=== PATIENT | female | born 1995 | race Caucasian/White ===

== ENCOUNTER 2023-04-20 08:17 | Day surgery (SDC) | payer SELFPAY ==
[2023-04-20] MEDS ORDERED: hydrALAZINE 20 MG/ML VIAL SLOW IVP PRN (09:52)
[2023-04-20 11:08] VITALS: BMI 39.6
[2023-04-20 11:28] LABS: Bilirubin Neg (Negative); Blood, Urine Negative (Negative); Clarity Clear (Clear); Glucose, Urine (Dipstick) Normal (Negative); Ketone, Urine Negative (Negative); Leukocyte Negative (Negative); Nitrite Negative (Negative); Protein, Urine (Dipstick) Negative (Neg-Trace); Urobilinogen Normal mg/dL (Less than 2)
[2023-04-20 11:40] LABS: Bacteria/HPF 1+ HPF (None Seen); RBC/HPF 0-3 HPF (0-3); Squamous Epithelial 0-3 HPF (0-3); WBC/HPF 0-3 HPF (0-3)
[2023-04-20] MEDS ORDERED: Acetaminophen 500 MG TAB PO SCH (12:00)
[2023-04-21] MEDS ORDERED: Lidocaine 4% Patch TD SCH (09:00)
[2023-04-21] MEDS ORDERED: Transdermal Patch Removal TOP SCH (21:00)
== END 2023-04-20 12:23 | disposition home or self-care (01) ==
LOC: CSHLD/OP 08:17
PROVIDERS: ATTEND Family Medicine
DX: O99.891 Other specified diseases and conditions complicating pregnancy (principal); R10.9 Unspecified abdominal pain; M25.552 Pain in left hip; O99.213 Obesity complicating pregnancy, third trimester; E66.9 Obesity, unspecified; O99.013 Anemia complicating pregnancy, third trimester; D64.9 Anemia, unspecified; Z3A.32 32 weeks gestation of pregnancy; Z79.899 Other long term (current) drug therapy; Z90.89 Acquired absence of other organs
CPT/HCPCS: 51701; 81001; 99282

== ENCOUNTER 2023-04-21 10:19 | Day surgery (SDC) | payer SELFPAY ==
[2023-04-21] MEDS ORDERED: Iron Sucrose Complex 500 MG in Sodium Chloride 0.9% 250 ML 250 ML IVPB SCH (10:30)
[2023-04-21] MEDS ORDERED: Acetaminophen 500 MG TAB PO SCH (10:30)
== END 2023-04-21 15:00 | disposition home or self-care (01) ==
LOC: CSHSDC/OP 10:19
PROVIDERS: ATTEND Student in an Organized Health Care Education/Training Program
DX: O99.019 Anemia complicating pregnancy, unspecified trimester (principal); D64.9 Anemia, unspecified; Z3A.00 Weeks of gestation of pregnancy not specified
CPT/HCPCS: J1756; J7050

== ENCOUNTER 2023-05-26 09:20 | Day surgery (SDC) | payer OTHER, SELFPAY ==
[2023-05-26] MEDS ORDERED: Acetaminophen 500 MG TAB ONE (09:37)
[2023-05-26] MEDS ORDERED: Iron Sucrose Complex 500 MG in Sodium Chloride 0.9% 250 ML 250 ML IVPB SCH (09:45)
[2023-05-26] MEDS ORDERED: Acetaminophen 500 MG TAB PO SCH (09:45)
== END 2023-05-26 14:50 | disposition home or self-care (01) ==
LOC: CSHSDC/OP 09:20
PROVIDERS: ATTEND Student in an Organized Health Care Education/Training Program
DX: O99.019 Anemia complicating pregnancy, unspecified trimester (principal); D64.9 Anemia, unspecified; Z3A.00 Weeks of gestation of pregnancy not specified
CPT/HCPCS: J1756; J7050

== ENCOUNTER 2023-05-31 18:24 | Day surgery (SDC) | payer SELFPAY ==
[2023-05-31 18:54] VITALS: BMI 42.4
== END 2023-05-31 21:03 | disposition home or self-care (01) ==
LOC: CSHLD/OP 18:24
PROVIDERS: ATTEND Family Medicine
DX: O99.891 Other specified diseases and conditions complicating pregnancy (principal); R60.0 Localized edema; O99.213 Obesity complicating pregnancy, third trimester; E66.9 Obesity, unspecified; O99.013 Anemia complicating pregnancy, third trimester; D50.9 Iron deficiency anemia, unspecified; Z79.899 Other long term (current) drug therapy; Z3A.38 38 weeks gestation of pregnancy
CPT/HCPCS: 93970

== ENCOUNTER 2024-07-21 00:26 | Day surgery (SDC) | payer OTHER ==
[2024-07-21 00:47] VITALS: BMI 42.4
[2024-07-21] MEDS ORDERED: hydrALAZINE 20 MG/ML VIAL SLOW IVP PRN (01:00)
[2024-07-21 01:30] LABS: Fetal Membranes Rupture No Membranes Rupture (No Rupture)
== END 2024-07-21 02:25 | disposition home or self-care (01) ==
LOC: CSHLD/OP 00:26
PROVIDERS: ATTEND Family Medicine
DX: O47.1 False labor at or after 37 completed weeks of gestation (principal); Z03.71 Encounter for suspected problem with amniotic cavity and membrane ruled out; O99.213 Obesity complicating pregnancy, third trimester; Z79.899 Other long term (current) drug therapy; Z3A.37 37 weeks gestation of pregnancy
CPT/HCPCS: 84112; 87480; 87510; 87660

== ENCOUNTER 2024-07-24 21:39 | Day surgery (SDC) | payer OTHER ==
[2024-07-24 22:16] VITALS: BMI 42.8
[2024-07-24 22:50] LABS: Fetal Membranes Rupture No Membranes Rupture (No Rupture)
[2024-07-24] MEDS ORDERED: hydrALAZINE 20 MG/ML VIAL SLOW IVP PRN (23:06)
== END 2024-07-25 00:36 | disposition home or self-care (01) ==
LOC: CSHLD/OP 21:39
PROVIDERS: ATTEND Family Medicine
DX: Z03.71 Encounter for suspected problem with amniotic cavity and membrane ruled out (principal); O47.1 False labor at or after 37 completed weeks of gestation; O99.213 Obesity complicating pregnancy, third trimester; O99.013 Anemia complicating pregnancy, third trimester; Z79.899 Other long term (current) drug therapy; Z3A.38 38 weeks gestation of pregnancy
CPT/HCPCS: 84112; 87480; 87510; 87660; 99284

== ENCOUNTER 2024-07-28 18:27 | Inpatient (IN) | payer OTHER ==
[~2024-07-28 18:27] MED LIST: Bupivacaine 0.25% HCL 30 ML VIAL ONE; ePHEDrine Sulfate 50 MG/10 ML VIAL ONE
[2024-07-28 19:01] VITALS: BMI 42.8
[2024-07-28] MEDS ORDERED: hydrALAZINE 20 MG/ML VIAL SLOW IVP PRN (19:20)
[2024-07-28 20:06] LABS: Fetal Membranes Rupture No Membranes Rupture (No Rupture)
[2024-07-28] MEDS: Acetaminophen 500 MG TAB PO SCH (21:12)
[2024-07-28] MEDS ORDERED: Ondansetron PF 4 MG/2 ML Vial IVP PRN (23:15)
[2024-07-28] MEDS ORDERED: Lidocaine 1% (PF) 30 ML VIAL SC PRN (23:15)
[2024-07-28] MEDS ORDERED: Ibuprofen 800 MG TAB PO PRN (23:15)
[2024-07-28] MEDS ORDERED: Tranexamic Acid 1,000 MG/10 ML VIAL IVP PRN (23:15)
[2024-07-28] MEDS ORDERED: Oxytocin 30 units/NS 500 ML 500 ML IV SCH ×2 (23:15)
[2024-07-28] MEDS ORDERED: Diphenoxylate HCl/Atropine Tablet PO PRN (23:15)
[2024-07-28] MEDS ORDERED: Carboprost 250 MCG/ML AMP IM PRN (23:15)
[2024-07-28] MEDS ORDERED: Misoprostol 200 MCG TAB PR PRN (23:15)
[2024-07-28] MEDS ORDERED: Methylergonovine 0.2 MG/ML VIAL IM PRN (23:15)
[2024-07-28] MEDS: Lactated Ringer's 1,000 ML IV SCH (23:30)
[2024-07-28 23:33] LABS: Hematocrit 35.4 % (34.9-44.5); Mean Corpuscular HGB CONC 33.9 g/dL (32.0-36.0); Mean Corpuscular Hemoglobin 27.1 pg (27.0-33.0); Mean Corpuscular Volume 80.1 fL (81.6-98.3); Mean Platelet Volume 10.4 fL (7.4-10.4); Platelet Count 181 10x3/uL (150-450); RBC Distribution Width 15.2 % (11.5-14.5); Red Blood Cell (RBC) Count 4.42 10x6/uL (3.90-5.03); White Blood Cell (WBC) Count 7.5 10x3/uL (3.5-10.5)
[2024-07-29] MEDS ORDERED: Misoprostol 100 MCG TAB VAG SCH
[2024-07-29] MEDS: fentaNYL/Ropivacaine Epidural 100 ML ONE (00:03)
[2024-07-29 00:10] LABS: Syphilis Antibody Nonreactive (Nonreactive); Syphilis Antibody Index 0.05 S/CO (<1.00 Non-Reactive)
[2024-07-29 00:12] LABS: HBsAg Index 0.24 S/CO (0-0.99); Hep B Surf Ag - L&D Non-Reactive S/CO (NonReactive)
[2024-07-29] MEDS ORDERED: diphenhydrAMINE 50 MG/ML VIAL IVP PRN (00:27)
[2024-07-29] MEDS ORDERED: Moisturizing Cream (Eucerin) 113 GM JAR TOP PRN (00:27)
[2024-07-29] MEDS ORDERED: Lactated Ringer's 500 ML IV PRN (00:27)
[2024-07-29] MEDS ORDERED: Naloxone HCl 0.4 mg/ml Vial IVP PRN ×2 (00:27)
[2024-07-29] MEDS ORDERED: Promethazine HCl 25 MG/ML VIAL IM PRN (00:27)
[2024-07-29] MEDS ORDERED: Communication Order-Pharmacy FS SCH (00:30)
[2024-07-29] MEDS ORDERED: fentaNYL 2 mcg/Ropivacaine 0.2% Epidural 100 ML CADD EPIDURAL SCH (00:30)
[2024-07-29] MEDS: Ondansetron PF 4 MG/2 ML Vial IVP PRN (00:45)
[2024-07-29] MEDS: ePHEDrine Sulfate 50 MG/10 ML VIAL SLOW IVP PRN (01:07)
[2024-07-29] MEDS: Calcium Carbonate 500 MG ChewTAB PO PRN (03:02)
[2024-07-29] MEDS: Oxytocin 30 units/NS 500 ML 500 ML IV SCH (05:00)
[2024-07-29] MEDS ORDERED: Lactated Ringer's 1,000 ML IV SCH (05:30)
[2024-07-29] MEDS ORDERED: Oxytocin 30 units/NS 500 ML 500 ML IV SCH (11:00)
[2024-07-29] MEDS ORDERED: Bisacodyl 10 MG SUPP PR PRN (11:00)
[2024-07-29] MEDS ORDERED: Misoprostol 200 MCG TAB VAG PRN (11:00)
[2024-07-29] MEDS ORDERED: Benzocaine-Menthol 82.5 ML CAN TOP PRN (11:00)
[2024-07-29] MEDS ORDERED: Lanolin Ointment 7 GM TUBE TOP PRN (11:00)
[2024-07-29] MEDS ORDERED: hydrALAZINE 20 MG/ML VIAL SLOW IVP PRN (11:00)
[2024-07-29] MEDS ORDERED: Methylergonovine 0.2 MG/ML VIAL IM PRN (11:00)
[2024-07-29] MEDS ORDERED: diphenhydrAMINE 25 MG CAP PO PRN (11:00)
[2024-07-29] MEDS ORDERED: Milk Of Magnesia 30 ML UDCUP PO PRN (11:00)
[2024-07-29] MEDS ORDERED: Preparation H Ointment 28 GM TUBE PR PRN (11:00)
[2024-07-29] MEDS: Acetaminophen 500 MG TAB PO PRN (11:38)
[2024-07-29] MEDS: Ibuprofen 800 MG TAB PO SCH (13:06)
[2024-07-29] MEDS: Acetaminophen 325 MG TAB PO PRN (15:41)
[2024-07-29] MEDS: Ferrous Sulfate 325 MG TAB PO SCH (19:15)
[2024-07-29] MEDS: Docusate 100 MG CAP PO SCH (21:04)
[2024-07-30] MEDS: Boostrix 0.5 ML (Tdap) VIAL (>/=7 yrs of age) IM ONE (07:23)
[2024-07-30 07:48] VITALS: BP 108/56; TEMP 98
[2024-07-30] MEDS: Prenatal Vitamin 1 TAB PO SCH (07:53)
== END 2024-07-30 13:55 | disposition home or self-care (01) | DRG 807 ==
LOC: CSHLD/OP 18:27 → CSHLD 23:15 → CSHPP 07-29 13:30
PROVIDERS: ADMIT Family Medicine; ATTEND Family Medicine
PROC: 10E0XZZ Delivery of Products of Conception, External Approach (ICD-10-PCS; principal; 2024-07-29)
PROC: 10H07YZ Insertion of Other Device into Products of Conception, Via Natural or Artificial Opening (ICD-10-PCS; 2024-07-29)
DX: O99.02 Anemia complicating childbirth (principal); Z37.0 Single live birth; O99.214 Obesity complicating childbirth; D64.9 Anemia, unspecified; N76.0 Acute vaginitis; Z79.899 Other long term (current) drug therapy; E66.813 Obesity, class 3; Z3A.38 38 weeks gestation of pregnancy
CPT/HCPCS: 51702; 84112; 85027; 86780; 86850; 86900; 86901; 87340; 99285; J0665; J2405; J2590; J7120

== ENCOUNTER 2024-08-09 20:10 | Emergency (ER) | payer OTHER ==
[~2024-08-09 20:10] MED LIST changes: -Bupivacaine 0.25% HCL 30 ML VIAL ONE; +Iopamidol 300 61% 100 ML VIAL FS ONE; -ePHEDrine Sulfate 50 MG/10 ML VIAL ONE
[2024-08-09] MEDS ORDERED: Ketorolac Tromethamine 30 MG (1 mL) VIAL ONE (21:10)
[2024-08-09] MEDS ORDERED: Ondansetron PF 4 MG/2 ML Vial ONE (21:10)
[2024-08-09 21:20] LABS: Bilirubin Neg (Negative); Blood, Urine 250 (Negative); Clarity Cloudy (Clear); Glucose, Urine (Dipstick) Normal (Negative); Ketone, Urine Negative (Negative); Leukocyte 100 (Negative); Nitrite Negative (Negative); Protein, Urine (Dipstick) 100 mg/dl (Neg-Trace); Urobilinogen Normal mg/dL (Less than 2)
[2024-08-09 21:49] LABS: #Basophils 0.04 10x3/uL (0.0-0.2); #Eosinophils 0.16 10x3/uL (0.0-0.5); #Neutrophils 4.37 10x3/uL (1.5-8.4); %Basophils 0.5 % (0.0-2.0); %Eosinophils 1.9 % (0.0-6.0); %Monocytes 4.7 % (0.0-10.0); %Neutrophils 51.8 % (40.0-75.0); Hematocrit 42.4 % (34.9-44.5); Hemoglobin 13.5 g/dL (12.0-15.5); Mean Corpuscular HGB CONC 31.8 g/dL (32.0-36.0); Mean Corpuscular Hemoglobin 26.3 pg (27.0-33.0); Mean Corpuscular Volume 82.7 fL (81.6-98.3); Mean Platelet Volume 10.2 fL (7.4-10.4); Platelet Count 321 10x3/uL (150-450); RBC Distribution Width 14.8 % (11.5-14.5); Red Blood Cell (RBC) Count 5.13 10x6/uL (3.90-5.03); White Blood Cell (WBC) Count 8.4 10x3/uL (3.5-10.5)
[2024-08-09 21:55] LABS: CAUTI Indications for Culture Pelvic or flank pain; RBC/HPF Greater than 50 HPF (0-3); Squamous Epithelial 0-3 HPF (0-3)
[2024-08-09 21:56] LABS: ALT (SGPT) 17 U/L (8-55); AST (SGOT) 11 U/L (5-34); Albumin 3.2 g/dL (3.5-5.0); Alkaline Phosphatase 118 U/L (40-110); Anion Gap 12 mmol/L (10-20); BUN (Urea Nitrogen) 12 mg/dL (7.0-18.7); Bilirubin, Total 0.3 mg/dL (0.2-1.2); Calc. Creatinine Clearance 0 mL/min (70-130); Calcium 9.6 mg/dL (7.8-10.44); Carbon Dioxide 23 mmol/L (22-29); Chloride 109 mmol/L (98-107); Estimated GFR 112; Globulin 3.7 g/dL (2.4-3.5); Glucose 89 mg/dL (70-105); Lipase 27 U/L (8-78); Potassium 4.1 mmol/L (3.5-5.1); Protein, Total 6.9 g/dL (6.0-8.3); Sodium 140 mmol/L (136-145)
[2024-08-09 21:57] LABS: Transitional Epithelial 0-3 HPF (None Seen)
[2024-08-09 21:58] LABS: Bacteria/HPF 2+ HPF (None Seen); Mucous/LPF 1+ LPF (<2+)
[2024-08-09 22:00] LABS: Urine Culture Reflex No No
== END 2024-08-09 23:29 | disposition home or self-care (01) ==
LOC: CSHERS 20:10
DX: O99.893 Other specified diseases and conditions complicating puerperium (principal); R10.30 Lower abdominal pain, unspecified; R19.7 Diarrhea, unspecified
CPT/HCPCS: 74177; 80053; 81001; 83690; 85025; 96374; J1885; J2405; Q9967